=== PATIENT | female | born 1985 ===

== ENCOUNTER 2020-04-06 15:15 | Emergency (ER) | payer MEDICAID, OTHER | END 2020-04-06 15:57 | disposition home or self-care (01) | LOC: ERS 15:15 | DX: T16.2XXA Foreign body in left ear, initial encounter (principal); H60.92 Unspecified otitis externa, left ear; H66.92 Otitis media, unspecified, left ear; Z79.899 Other long term (current) drug therapy; F32.9 Major depressive disorder, single episode, unspecified | CPT/HCPCS: 69200 ==